=== PATIENT | male | born 1965 ===

== ENCOUNTER 2017-02-13 08:55 | Emergency (ER) | payer OTHER ==
[~2017-02-13] VITALS: Ht 167.6 cm; Wt 81.2 kg
[2017-02-13] MEDS ORDERED: LOSARTAN-HCTZ1 EAC2 (09:14)
== END 2017-02-13 19:01 | disposition home or self-care (01) ==
LOC: ER 08:55 → CPU-OBS 09:06 → ER 09:06
DX: R07.89 Other chest pain (principal); I10 Essential (primary) hypertension
CPT/HCPCS: G0378; G0379; 93005; 70450

== ENCOUNTER 2017-02-24 08:14 | Outpatient (CLI) | payer OTHER ==
[~2017-02-24 08:14] MED LIST: LOSARTAN-HCTZ1 EAC2
== END 2017-02-24 08:28 | disposition home or self-care (01) ==
LOC: SONOGRAMA 08:14
DX: R79.9 Abnormal finding of blood chemistry, unspecified (principal); E11.65 Type 2 diabetes mellitus with hyperglycemia